=== PATIENT | male | born 1980 | race Caucasian/White ===

== ENCOUNTER 2023-05-07 10:59 | Inpatient (IN) | payer BC, MEDICAID ==
[~2023-05-07] VITALS: Ht 175.3 cm; Wt 84.8 kg
[2023-05-07 11:57] LABS: HEMATOCRIT. 39.9 % (42.0-52.0); HEMOGLOBIN. 13.5 g/dL (14.0-18.0); MEAN CORPUSCULAR HGB CONC 33.8 g/dL (31.0-37.0); MEAN CORPUSCULAR VOLUME 85.6 fL (80.0-94.0); RED BLOOD CELL COUNT 4.66 mill/uL (4.7-6.1); RED CELL DISTRIBUTION WIDTH 15.5 % (11.6-14.6); WHITE BLOOD COUNT 10.4 x1000/uL (4.5-11.0)
[2023-05-07 11:59] LABS: CHLORIDE 96 mEq/L (98-107); INDEX HEMOLYSI 1 (1-3); INDEX ICTERIC 1 (1-4); INDEX LIPEMIC 1 (1-3); POTASSIUM 3.5 mEq/L (3.5-5.1); SODIUM 131 mEq/L (136-145)
[2023-05-07 12:03] LABS: DIFFERENTIAL COMMENT 1
[2023-05-07 12:09] LABS: ALANINE AMINOTRANSFERASE 24 IU/L (13-61); ALBUMIN 2.4 g/dL (3.4-5.0); ASPARTATE AMINOTRANSFERASE 81 IU/L (15-37); BILIRUBIN TOTAL 1.9 mg/dL (0.1-1.0); CALCIUM 7.8 mg/dL (8.5-10.1); CARBON DIOXIDE 25 mEq/L (21-32); CREATININE 2.4 mg/dL (0.6-1.3); GLUCOSE 131 mg/dL (70-105); NT PRO B-TYPE NATRIURETIC PEP 623 pg/mL (5-125); PROTEIN TOTAL 6.4 g/dL (6.0-8.3); UREA NITROGEN BLOOD 57 mg/dL (7-21)
[2023-05-07 13:16] LABS: MEAN PLATELET VOLUME 9.5 fl (7.4-10.4); PLATELET 111 x1000/uL (130-400)
[2023-05-07 13:18] LABS: ANISOCYTOSIS 1+; PLATELET ESTIMATE SLIGHTLY DECREASED
[2023-05-07 14:21] LABS: CLARITY URINE TURBID (CLEAR); COLOR URINE DARK YELLOW (YELLOW); GLUCOSE URINE NEGATIVE (NEGATIVE); KETONES URINE NEGATIVE (NEGATIVE); LEUKOCYTE ESTERASE URINE 3+ (NEGATIVE); NITRITE URINE NEGATIVE (NEGATIVE); OCCULT BLOOD URINE 3+ (NEGATIVE); PH URINE 5.5 (4.5-8.0); PROTEIN URINE 2+ (NEGATIVE); SPECIFIC GRAVITY URINE 1.018 (1.005-1.030)
[2023-05-07] MEDS ORDERED: PIPERACILLIN/TAZOBACTAM 3.375GM/50ML PREMIX IV ONE (14:30)
[2023-05-07] MEDS ORDERED: PIPERACILLIN/TAZ 3.375G PREMIX 50 ML IV NR (14:30)
[2023-05-07 14:41] LABS: SQUAMOUS EPITHELIAL CELL URINE 1+ /lpf (RARE/1+); WBC URINE 15-25 /hpf (0-2)
[2023-05-07 14:46] LABS: BACTERIA URINE 3+; YEAST URINE NONE SEEN
[2023-05-07] MEDS ORDERED: MORPHINE SULFATE 2 MG/ML CPJ (NOT FOR IM USE) IV PRN (17:30)
[2023-05-07] MEDS ORDERED: CEFTRIAXONE 1GM PREMIX 50 ML IV SCH (17:45)
[2023-05-07] MEDS: SODIUM CHLORIDE 0.9% 1,000 ML IV SCH (18:15)
[2023-05-07 18:45] LABS: HEMATOCRIT. 40.7 % (42.0-52.0); HEMOGLOBIN. 13.9 g/dL (14.0-18.0); MEAN CORPUSCULAR HEMOGLOBIN 29.3 pg (28.0-32.0); MEAN CORPUSCULAR HGB CONC 34.1 g/dL (31.0-37.0); MEAN CORPUSCULAR VOLUME 85.7 fL (80.0-94.0); MEAN PLATELET VOLUME 9.5 fl (7.4-10.4); PLATELET 105 x1000/uL (130-400); RED BLOOD CELL COUNT 4.75 mill/uL (4.7-6.1); RED CELL DISTRIBUTION WIDTH 15.8 % (11.6-14.6); WHITE BLOOD COUNT 8.6 x1000/uL (4.5-11.0)
[2023-05-07 18:49] LABS: DIFFERENTIAL COMMENT 1
[2023-05-07 19:08] LABS: POTASSIUM 3.8 mEq/L (3.5-5.1)
[2023-05-07 19:13] LABS: CALCIUM 8.3 mg/dL (8.5-10.1); CREATININE 2.1 mg/dL (0.6-1.3)
[2023-05-07 19:30] LABS: PLATELET ESTIMATE NORMAL
[2023-05-07 20:00] VITALS: BP 91/51; PULSE 109; RESP 20; TEMP 98.1
[2023-05-07] MEDS ORDERED: CEFTRIAXONE 1,000 MG in DEXTROSE 5% WATER 50 ML IV SCH (20:00)
[2023-05-07 21:34] VITALS: BP 129/72; PULSE 73; RESP 16; TEMP 98.1
[2023-05-08] VITALS: BP 100/62; PULSE 108; RESP 18; TEMP 98
[2023-05-08 04:00] VITALS: PULSE 109; RESP 20; TEMP 98.8
[2023-05-08 08:00] VITALS: BP 125/52; PULSE 112; RESP 20; TEMP 97.1
[2023-05-08] MEDS: ENOXAPARIN 40MG/0.4ML SYR SUBCUT SCH (08:18)
[2023-05-08] MEDS ORDERED: ONDANSETRON HCL 4MG/2ML INJ IV PRN (10:00)
[2023-05-08] MEDS: SODIUM CHLORIDE 0.9% 1,000 ML IV SCH (10:59)
[2023-05-08 12:00] VITALS: BP 96/54; PULSE 107; RESP 20; TEMP 97.1
[2023-05-08] MEDS ORDERED: NA PHOS,M-B/NA PHOS,DI-BA ENEMA 118ML PR NR (14:30)
[2023-05-08 16:00] VITALS: BP 100/70; PULSE 100; RESP 20; TEMP 96.6
[2023-05-08] MEDS ORDERED: BISACODYL 5MG TABLET PO PRN (17:15)
[2023-05-08 20:00] VITALS: BP 114/64; PULSE 99; RESP 20; TEMP 96.1
[2023-05-08] MEDS ORDERED: VANCOMYCIN 2,000 MG in DEXT 5% WATER 500 ML IV NR (20:00)
[2023-05-08 20:13] LABS: TROPONIN I HIGH SENSITIVITY 12 ng/L (<78)
[2023-05-08] MEDS ORDERED: NALOXONE HCL 0.4MG/ML VIAL IV PRN (20:15)
[2023-05-08] MEDS: CEFEPIME 2,000 MG in DEXT 5% WATER 100 ML IV SCH (20:23)
[2023-05-09] VITALS: BP 126/87; PULSE 105; RESP 20; TEMP 100.9
[2023-05-09] MEDS: SODIUM CHLORIDE 0.9% 1,000 ML IV SCH ×2 (03:35→20:15)
[2023-05-09 04:00] VITALS: BP 100/69; PULSE 92; RESP 20; TEMP 100.9
[2023-05-09 06:51] LABS: DIFFERENTIAL COMMENT 0; HEMATOCRIT. 37.7 % (42.0-52.0); LYMPHOCYTES % 8.2 % (20.0-50.0); MEAN CORPUSCULAR HEMOGLOBIN 29.9 pg (28.0-32.0); MEAN CORPUSCULAR HGB CONC 34.5 g/dL (31.0-37.0); MEAN CORPUSCULAR VOLUME 86.6 fL (80.0-94.0); MEAN PLATELET VOLUME 10.2 fl (7.4-10.4); MONOCYTES % 8.4 % (2.0-8.0); NEUTROPHILS % 83.4 % (40.0-76.0); PLATELET 104 x1000/uL (130-400); RED BLOOD CELL COUNT 4.36 mill/uL (4.7-6.1); RED CELL DISTRIBUTION WIDTH 15.6 % (11.6-14.6); WHITE BLOOD COUNT 8.3 x1000/uL (4.5-11.0)
[2023-05-09 06:54] LABS: CHLORIDE 97 mEq/L (98-107); INDEX HEMOLYSI 1 (1-3); INDEX ICTERIC 1 (1-4); INDEX LIPEMIC 1 (1-3); POTASSIUM 3.4 mEq/L (3.5-5.1); SODIUM 130 mEq/L (136-145)
[2023-05-09 07:01] LABS: CALCIUM 7.8 mg/dL (8.5-10.1); CARBON DIOXIDE 25 mEq/L (21-32); CREATININE 1.2 mg/dL (0.6-1.3); GLUCOSE 107 mg/dL (70-105); UREA NITROGEN BLOOD 48 mg/dL (7-21)
[2023-05-09 08:00] VITALS: BP 97/60; PULSE 60; RESP 16; TEMP 96.9
[2023-05-09] MEDS: CEFEPIME 2,000 MG in DEXT 5% WATER 100 ML IV SCH (09:35)
[2023-05-09] MEDS: ENOXAPARIN 40MG/0.4ML SYR SUBCUT SCH (09:36)
[2023-05-09] MEDS ORDERED: POTASSIUM CHLORIDE 20MEQ TABLET SR PO NR (10:00)
[2023-05-09 12:00] VITALS: BP 100/60; PULSE 58; RESP 15; TEMP 97.3
[2023-05-09] MEDS: VANCOMYCIN 1G PREMIX 200 ML IV SCH ×2 (12:38→23:15)
[2023-05-09 16:00] VITALS: BP 98/68; PULSE 68; RESP 19; TEMP 97.5
[2023-05-09 20:00] VITALS: BP 162/72; PULSE 98; RESP 18; TEMP 98.7
[2023-05-09] MEDS ORDERED: VANCOMYCIN 1.25GM PMX (XELLIA) 250 ML IV SCH (20:00)
[2023-05-09] MEDS ORDERED: CEFTRIAXONE 2GM/50ML (ADDEASE) 50 ML IV SCH (20:15)
[2023-05-09] MEDS: CEFTRIAXONE 2 G in DEXTROSE 5% WATER 50 ML IV SCH (21:11)
[2023-05-10] VITALS: BP 107/57; PULSE 96; RESP 18; TEMP 98.9
[2023-05-10 06:59] LABS: HEMATOCRIT. 42.4 % (42.0-52.0); MEAN CORPUSCULAR HGB CONC 32.9 g/dL (31.0-37.0); MEAN CORPUSCULAR VOLUME 88.2 fL (80.0-94.0); MEAN PLATELET VOLUME 11.1 fl (7.4-10.4); PLATELET 114 x1000/uL (130-400); RED BLOOD CELL COUNT 4.81 mill/uL (4.7-6.1); RED CELL DISTRIBUTION WIDTH 16.2 % (11.6-14.6); WHITE BLOOD COUNT 14.2 x1000/uL (4.5-11.0)
[2023-05-10 07:03] LABS: DIFFERENTIAL COMMENT 1
[2023-05-10 07:27] LABS: CHLORIDE 99 mEq/L (98-107); INDEX HEMOLYSI 3 (1-3); INDEX ICTERIC 1 (1-4); INDEX LIPEMIC 1 (1-3); POTASSIUM 3.6 mEq/L (3.5-5.1); SODIUM 131 mEq/L (136-145)
[2023-05-10 07:41] LABS: CALCIUM 7.8 mg/dL (8.5-10.1); CARBON DIOXIDE 23 mEq/L (21-32); CREATININE 0.9 mg/dL (0.6-1.3); GLUCOSE 106 mg/dL (70-105); PREALBUMIN 4.4 mg/dL (20.0-40.0); UREA NITROGEN BLOOD 34 mg/dL (7-21)
[2023-05-10 08:00] VITALS: BP 120/57; PULSE 92; RESP 20; TEMP 97.9
[2023-05-10] MEDS: ENOXAPARIN 40MG/0.4ML SYR SUBCUT SCH (09:04)
[2023-05-10] MEDS: VANCOMYCIN 1G PREMIX 200 ML IV SCH (12:00)
[2023-05-10] MEDS: SODIUM CHLORIDE 0.9% 1,000 ML IV SCH (12:01)
[2023-05-10] MEDS ORDERED: LIDOCAINE HCL 1% 10 MG/ML 10ML VIAL ONE (13:24)
[2023-05-10 14:35] LABS: ALBUMIN 1.9 g/dL (3.4-5.0)
[2023-05-10] MEDS ORDERED: DOXY100C5 MT (14:41)
[2023-05-10] MEDS ORDERED: HYDR-4001 MT (14:41)
[2023-05-10 16:00] VITALS: BP 92/49; PULSE 96; RESP 20; TEMP 100.1
[2023-05-10 17:16] LABS: PLATELET ESTIMATE DECREASED
[2023-05-10] MEDS ORDERED: IOHEXOL-300 100 ML BOTTLE ONE (19:43)
[2023-05-10 20:00] VITALS: BP 112/78; PULSE 93; RESP 18; TEMP 97.8
[2023-05-10] MEDS: CEFTRIAXONE 2 G in DEXTROSE 5% WATER 50 ML IV SCH (22:12)
[2023-05-11] VITALS: BP 99/47; PULSE 93; RESP 16; TEMP 97.1
[2023-05-11] MEDS: SODIUM CHLORIDE 0.9% 1,000 ML IV SCH (05:35)
[2023-05-11 08:00] VITALS: BP 109/69; PULSE 90; RESP 20; TEMP 98.2
[2023-05-11] MEDS ORDERED: SODIUM PHOS,M-BASIC-D-BASIC 20 MM in DEXT 5% WATER 243.3333 ML IV ONE (10:00)
[2023-05-11] MEDS: ENOXAPARIN 40MG/0.4ML SYR SUBCUT SCH (10:55)
[2023-05-11] MEDS: VANCOMYCIN 1G PREMIX 200 ML IV SCH ×2 (11:26)
[2023-05-11 11:50] VITALS: BP 122/76; PULSE 77; TEMP 97.9; O2SAT 100
[2023-05-11 12:00] VITALS: BP 101/54; PULSE 92; RESP 20; TEMP 98.2
== END 2023-05-11 15:53 | disposition home health service (06) | DRG 871 ==
LOC: ER 10:59 → 6WST 13:45 → EDBEDREQTM 13:49 → EDBEDREQ 13:49
PROVIDERS: ADMIT Internal Medicine; ATTEND Internal Medicine
PROC: 05H533Z Insertion of Infusion Device into Right Subclavian Vein, Percutaneous Approach (ICD-10-PCS; principal; 2023-05-10)
PROC: B546ZZA Ultrasonography of Right Subclavian Vein, Guidance (ICD-10-PCS; 2023-05-10)
DX: A41.9 Sepsis, unspecified organism (principal); G93.41 Metabolic encephalopathy; N39.0 Urinary tract infection, site not specified; G82.20 Paraplegia, unspecified; E87.1 Hypo-osmolality and hyponatremia; N17.9 Acute kidney failure, unspecified; E44.0 Moderate protein-calorie malnutrition; K59.2 Neurogenic bowel, not elsewhere classified; E86.0 Dehydration; N45.3 Epididymo-orchitis; L89.611 Pressure ulcer of right heel, stage 1; L89.621 Pressure ulcer of left heel, stage 1; Z68.27 Body mass index [BMI] 27.0-27.9, adult; R65.20 Severe sepsis without septic shock; B96.89 Other specified bacterial agents as the cause of diseases classified elsewhere; D63.8 Anemia in other chronic diseases classified elsewhere; E86.1 Hypovolemia; M21.331 Wrist drop, right wrist; R07.89 Other chest pain; E87.6 Hypokalemia; I73.9 Peripheral vascular disease, unspecified; M21.332 Wrist drop, left wrist; N31.9 Neuromuscular dysfunction of bladder, unspecified; L84 Corns and callosities; M21.969 Unspecified acquired deformity of unspecified lower leg; N18.9 Chronic kidney disease, unspecified; Z74.01 Bed confinement status; Z87.891 Personal history of nicotine dependence
CPT/HCPCS: 36415; 36573; 74177; 76770; 76870; 80048; 80053; 80202; 81003; 82040; 82570; 83605; 83735; 83880; 84100; 84134; 84145; 84300; 84484; 85025; 87077; 87186; 93005; 93306; 93976; 97162; 97167; 99285; A6261; C1725; J0692; J0696; J1650; J2405; J2543; J3370; J3490; J7030; J7060; Q9967; A4315